=== PATIENT | male | born 1980 | race Caucasian/White ===

== ENCOUNTER 2020-01-06 18:37 | Emergency (ER) | payer OTHER ==
[~2020-01-06] VITALS: Ht 175.3 cm; Wt 99.8 kg
== END 2020-01-06 19:39 | disposition home or self-care (01) ==
LOC: ER 18:37 → EDBD 18:46 → ER 18:46
DX: R21 Rash and other nonspecific skin eruption (principal); T78.49XA Other allergy, initial encounter; X58.XXXA Exposure to other specified factors, initial encounter